=== PATIENT | male | born 1960 | race Caucasian/White ===

== ENCOUNTER 2022-11-23 09:31 | Emergency (ER) | payer BC, SELFPAY ==
[2022-11-23 10:00] VITALS: BP 166/108; PULSE 55; RESP 20; TEMP 36.3; O2SAT 95; BMI 47.0
[2022-11-23 11:29] VITALS: BP 150/86; PULSE 60; RESP 18; O2SAT 95
--- NOTE | 2022-11-23 11:47 | ED.GENADULT ---
HPI - General Adult General Chief complaint: Unspecified Complaint, Adult Stated complaint: possible sezuire post 4 days Time Seen by Provider: 11/23/22 11:32 History of Present Illness HPI narrative: This 62-year-old male comes in by recommendation of the [facility]. He called today because of an episode that occurred 4 days ago involving about 15 minutes of vertigo symptoms. He was instructed to come here for evaluation. He states that he has been feeling normal since then. Four days ago he states that he had a rather sudden onset of vertigo symptoms with associated nausea. He had to hold on to steady himself but did not have any unilateral weakness or other symptoms. These symptoms completely resolved after about 15 minutes. He states that he has been feeling normal since then. He does not report any headache. He has not had any fevers and has no report of any new medications. Related Data Allergies Allergy/AdvReac Type Severity Reaction Status Date / Time No Known Drug Allergies Allergy Verified 11/23/22 09:59 Review of Systems Status of ROS: Reports: 10 or more systems reviewed and unremarkable except as noted in History and below Narrative: Constitutional: No fevers, no weight gain or loss. Eyes: No discharge. No vision changes. HENT: No congestion, no sore throat, no ear pain. Cardiovascular: No chest pain, no palpitations. Respiratory: No shortness of breath, no wheezes, no cough. Gastrointestinal: No abdominal pain, no vomiting, no diarrhea. Genitourinary: No dysuria, no hematuria. Musculoskeletal: Normal range of motion. Skin: No rashes, no pruritis. Neurological: No dizziness, weakness, sensory change, speech change. Episode of vertigo 4 days ago. Endo/Heme/Allergies: No bruising or bleeding. No polydipsia. Pysch: no suicidality, no anxiety, no insomnia. All other systems reviewed and are negative. PFSH PFS Social History Smoking Status: Current every day smoker What tobacco products do you use: cigarettes Smoking packs per day: 1 Smoking cigarettes per day: 20.0 Years smoked: 40 Smoking pack-years: 40.00 Do you use any of these nicotine containing products: None Second hand tobacco smoke exposure: No How often do you have a drink containing alcohol: never How often do you have six or more drinks on one occasion: Never AUDIT-C Alcohol total score: 0 Non-prescribed substance use: denies use service: No Exam Narrative: Exam Narrative: Constitutional: Well-developed, well-nourished, no acute distress. HEENT: Normocephalic, atraumatic. Neck: Normal range of motion. Nontender. Supple. Heart: Regular. No murmurs. Normal rate. Intact distal pulses. Lungs: Clear to auscultation. No chest discomfort. No wheezes, rhonchi, or rales. Abdomen: Normal bowel sounds. Nontender. No rebound tenderness. Genitalia: Deferred. Back: No midline tenderness. Normal range of motion. Extremities: Normal range of motion. No injury. Skin: Intact. No rash. Warm. No erythema or pallor. Neurologic: No altered sensation. No weakness. Alert and oriented. No facial asymmetry. No nystagmus. [id number] is normal. No pronator drift. [employer] strength is equal bilaterally. He is able to raise each leg to my hand. Psychiatric: No suicidality. No anxiety or depression. No insomnia. Nursing notes and vitals signs are reviewed. Const: Vital Signs, click to edit/add: Vital Signs - 24 hr 11/23/22 10:00 11/23/22 11:29 Temperature 97.4 F L Pulse Rate [Pulse Oximeter] 55 L 60 Respiratory Rate 20 18 Blood Pressure [Ri ght Upper Arm] 166/108 H 150/86 H Pulse Oximetry 95 95 Oxygen Delivery Me thod Room Air Room Air Course Vital Signs Vital signs: Initial Vital Signs Temperature 97.4 F L 11/23/22 10:00 Temperature Source Temporal Artery Scan 11/23/22 10:00 Pulse Rate 55 L 11/23/22 10:00 Pulse Rhythm Regular 11/23/22 10:00 Respiratory Rate 20 11/23/22 10:00 Blood Pressure 166/108 H 11/23/22 10:00 Blood Pressure Mean 127 11/23/22 10:00 Blood Pressure Position Sitting 11/23/22 10:00 Pulse Oximetry 95 11/23/22 10:00 Oxygen Delivery Method Room Air 11/23/22 10:00 Vital Signs Temperature 97.4 F L 11/23/22 10:00 Pulse Rate 55 L 11/23/22 10:00 Respiratory Rate 20 11/23/22 10:00 Blood Pressure 166/108 H 11/23/22 10:00 Pulse Oximetry 95 04/10/23 10:00 Oxygen Delivery Method Room Air 11/23/22 10:00 Temperature 97.4 F L 11/23/22 10:00 Pulse Rate 60 11/23/22 11:29 Respiratory Rate 18 11/23/22 11:29 Blood Pressure 150/86 H 11/23/22 11:29 Pulse Oximetry 95 11/23/22 11:29 Oxygen Delivery Method Room Air 11/23/22 11:29 Medical Decision Making MDM Narrative Medical decision making narrative: This patient comes in with a report of vertigo symptoms that occurred 4 days ago and lasted about 15 minutes. Since then he states he is feeling normal. His neurologic exam and vital signs are completely normal. I did discuss lab and imaging options with the patient and in a process of shared decision-making he declined these. I did describe signs and symptoms that would indicate a need for return and re-evaluation. At the time of discharge the patient appears safe for outpatient management. The treatment plan is reviewed along with written and verbal return precautions. Reasons to return and the importance of close followup were also reviewed. Discharge Plan Discharge Clinical Impression: Vertigo Patient Disposition: Home, Self-Care Condition: Improved Additional Instructions: Continue current plans. Follow up with MD as needed. Return if symptoms are recurrent or worsening. Stand Alone Forms: [employer] Info Instructions
== END 2022-11-23 12:10 | disposition home or self-care (01) ==
PROVIDERS: Emergency Provider Emergency Medicine Emergency Medical Services
DX: R42 Dizziness and giddiness (principal)
CPT/HCPCS: 99282; 99283; 99284

== ENCOUNTER 2023-11-22 06:38 | Outpatient (CLI) | payer BC, SELFPAY ==
--- NOTE | 2023-11-22 07:59 | W.ANESCHARGE ---
Anesthesia Charges Start Date/Time Anesthesia Start Date: 11/22/23 Anesthesia Start Time: 07:26 Stop Date/Time Anesthesia Stop Date: 11/22/23 Anesthesia Stop Time: 07:53
--- NOTE | 2023-11-22 08:58 | W.ANESCHARGE ---
Anesthesia Charges Start Date/Time Anesthesia Start Date: 11/22/23 Anesthesia Start Time: 07:26 Stop Date/Time Anesthesia Stop Date: 11/22/23 Anesthesia Stop Time: 07:53
== END 2023-11-22 06:39 | disposition home or self-care (01) ==
LOC: OP CLINIC 06:38
PROVIDERS: PCP Student in an Organized Health Care Education/Training Program; Visit Provider Internal Medicine Gastroenterology
DX: Z12.11 Encounter for screening for malignant neoplasm of colon (principal); K63.5 Polyp of colon; K57.30 Diverticulosis of large intestine without perforation or abscess without bleeding; R19.5 Other fecal abnormalities
CPT/HCPCS: 00811; 45385; 88305; J2704